=== PATIENT | male | born 1955 | race African-American/Black ===

== ENCOUNTER → 2016-08-15 | Day surgery (SDC) | payer OTHER ==
[~2016-08-15] VITALS: Ht 175.3 cm; Wt 69.3 kg
[~2016-08-15] MED LIST: ALLO100T PO; AMLO5TAB2 PO; BELLADONNA ALKALOIDS/OPIUM 60 MG SUPP RECTAL ONE; CHLORHEXIDINE GLUCONATE 2 % 1 PACK (2 CLOTHS) TOPICAL PRN; CYCL1TAB29 PO; DEXAMETHASONE SOD PHOS 4 MG/ML VIAL ONE; FAMOTIDINE 20 MG/2 ML VIAL ONE; INSULIN HUMAN REGULAR 1,000 UNITS/10 ML VIAL SQ PRN; LACTATED RINGER'S 1000 ML IV PRN; METO25TA3 PO; METOPROLOL TARTRATE 25 MG TAB PO PRN; MIDAZOLAM HCL 2 MG/2 ML VIAL ONE; ONDANSETRON HCL 4 MG/2 ML VIAL IV PUSH ONE; PHENYLEPH/NS 1000 MCG/10 ML SYR IV ONE; POVIDONE IODINE 5% (ANTISEPSIS KIT) 4 APPLICATIONS EACH NARE PRN; PROPOFOL 200 MG/20 ML AMP IV ONE; QUET1TAB7 PO; SODIUM CHLORID 0.9% 500 ML IV PRN; VESI5TAB PO; ceFAZolin 1,000 MG/NS 100 ML IV SCH
[2016-08-15 06:18] VITALS: BP 129/91; PULSE 108; RESP 18; TEMP 98.6; O2SAT 96
[2016-08-15 06:40] LABS: BASOPHIL % 0.8 % (0.0-2.0); HEMATOCRIT 38.4 % (39.0-51.0); HEMO FLAGS DIFF FINAL; LYMPH % 26.3 % (9.0-44.0); LYMPHOCYTE # 1.1 TH/MM3 (1.0-4.8); MEAN CELL VOLUME 90.6 FL (80.0-100.0); MEAN CORPUSCULAR HEMOGLOBIN 31.1 PG (27.0-34.0); MEAN CORPUSCULAR HGB CONC 34.3 % (32.0-36.0); MONO % 23.2 % (0.0-8.0); NEUT % 48.7 % (16.0-70.0); PLATELET COUNT 273 TH/MM3 (150-450); RED BLOOD COUNT 4.24 MIL/MM3 (4.50-5.90); RED CELL DISTRIBUTION WIDTH 13.1 % (11.6-17.2); WHITE BLOOD COUNT 4.1 TH/MM3 (4.0-11.0)
--- NOTE | 2016-08-15 09:10 | PD.OP ---
Operative Report Date of Surgery: Aug 15, 2016 Preoperative Diagnosis: History of prostate cancer s/p RRP with bladder neck contracture Postoperative Diagnosis: Same Procedure: Cystoscopy with dilatation of bladder neck contracture Anesthesia: Gen. 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 Pathology showed Carmine 9 disease pT3b. Patient has been having difficulty urinating and cystoscopy in office demonstrated a bladder neck contracture. He did undergo cystoscopy with urethral dilation in the office but scar tissue reformed. Decision made to bring the patient to the operating room to undergo cystoscopy with dilatation of bladder neck contracture and possible DVIU. Risk of incontinence was discussed preoperatively and he was willing to proceed. Patient is brought the operating room and identified by myself as Gabino Cooley. This placed the dorsal lithotomy position, prepped and draped in usual sterile fashion, received preprocedure antibiotics, and and general LMA anesthesia was administered. 19 Danish cystoscope was inserted up to the area of the bladder neck and a 0.35 sensor wire was passed into the bladder. Using Microvasive ureteral dilators, the bladder neck contracture was dilated up to a 16 Danish. The 19 Danish cystoscope was then able to be passed through the area dilating it further. Leaving the wire in place a 18 Danish [place] tip catheter was inserted over the wire without difficulty. The bladder was emptied and 20 cc were placed in the balloon. He tolerated the procedure well and was transferred to her room in stable condition. He'll follow-up in one week to undergo voiding trial. He may need to proceed with clean intermittent catheterization once a week to maintain patency of his bladder neck. Abhinav Saucedo DO Aug 15, 2016 09:10
--- NOTE | 2016-08-15 09:54 | EKG ---
Date Performed: 08/15/2016 Time Performed: 06:51:42 PTAGE: 61 years EKG: SINUS TACHYCARDIA MODERATE INTRAVENTRICULAR CONDUCTION DELAY NONSPECIFIC T-WAVE ABNORMALITY ABNORMAL ECG PREVIOUS TRACING : 02/28/2015 18.17 Compared to prior tracing no significant change DOCTOR: Billy Juan Interpretating Date/Time 08/15/2016 09:53:08
[2016-08-15 10:45] VITALS: BP 124/76; PULSE 92; RESP 18; TEMP 97.9; O2SAT 97
== END | disposition home or self-care (01) ==
LOC: HSDC 05:38
PROVIDERS: ATTEND Urology
DX: N32.0 Bladder-neck obstruction (principal); Z85.46 Personal history of malignant neoplasm of prostate; R94.31 Abnormal electrocardiogram [ECG] [EKG]
CPT/HCPCS: 00910; 52281; 85025; 93005; C1769; J0690; J1100; J2250; J2370; J2405; J3010; J7120

== ENCOUNTER → 2017-03-11 | Outpatient (CLI) | payer OTHER ==
[~2017-03-11] MED LIST changes: -BELLADONNA ALKALOIDS/OPIUM 60 MG SUPP RECTAL ONE; -CHLORHEXIDINE GLUCONATE 2 % 1 PACK (2 CLOTHS) TOPICAL PRN; -DEXAMETHASONE SOD PHOS 4 MG/ML VIAL ONE; -FAMOTIDINE 20 MG/2 ML VIAL ONE; -INSULIN HUMAN REGULAR 1,000 UNITS/10 ML VIAL SQ PRN; -LACTATED RINGER'S 1000 ML IV PRN; -METOPROLOL TARTRATE 25 MG TAB PO PRN; -MIDAZOLAM HCL 2 MG/2 ML VIAL ONE; -ONDANSETRON HCL 4 MG/2 ML VIAL IV PUSH ONE; -PHENYLEPH/NS 1000 MCG/10 ML SYR IV ONE; -POVIDONE IODINE 5% (ANTISEPSIS KIT) 4 APPLICATIONS EACH NARE PRN; -PROPOFOL 200 MG/20 ML AMP IV ONE; -SODIUM CHLORID 0.9% 500 ML IV PRN; -ceFAZolin 1,000 MG/NS 100 ML IV SCH
--- NOTE | 2017-03-11 12:38 | RADRPT ---
EXAM DATE/TIME: 03/11/2017 11:15 [facility] COMPARISON: No previous studies available for comparison. INDICATIONS : History of prostate cancer ORAL CONTRAST: Prescribed oral contrast ingested. RADIATION DOSE: 5.20 CTDIvol (mGy) MEDICAL HISTORY : Carcinoma, prostate. Hypertension. SURGICAL HISTORY : Prostatectomy. ENCOUNTER: Initial ACUITY: 1 day PAIN SCALE: 0/10 LOCATION: abdomen TECHNIQUE: Volumetric scanning of the abdomen and pelvis was performed. Using automated exposure control and ad justment of the mA and/or kV according to patient size, radiation dose was kept as low as reasonably achievable to obtain optimal diagnostic quality images. DICOM format image data is available electro nically for review and comparison. FINDINGS: LOWER LUNGS: The visualized lower lungs are clear. There is coronary artery calcification. LIVER: Mild diffuse low density without lesion. There is no dilation of the biliary tree. No calcified gal lstones. SPLEEN: Normal size without lesion. PANCREAS: Within normal limits. KIDNEYS: Normal in size and shape. There is no mass, stone, or hydronephrosis. ADRENAL GLANDS: Within normal limits. VASCULAR: There is no aortic aneurysm. There is severe atherosclerotic disease. BOWEL/MESENTERY: The stomach, small bowel, and colon demonstrate no acute abnormality. There is no free intraperitone al air or fluid. Appendix is normal. There is groundglass attenuation within the small bowel mesenter y. ABDOMINAL WALL: Within normal limits. RETROPERITONEUM: There is no lymphadenopathy. There are multiple clips in the pelvis. BLADDER: No wall thickening or mass. REPRODUCTIVE: Surgically absent. INGUINAL: There is no lymphadenopathy or hernia. MUSCULOSKELETAL: There are degenerative changes of the lumbar spine. No lytic or blastic lesion is present. CONCLUSION: 1. No acute finding is identified within the abdomen or pelvis. Patient is post prostatectomy. There are no imaging findings to indicate local recurrence or metastatic disease on this noncontrast exam. 2. Nonacute findings include coronary artery calcification, severe atherosclerotic disease, and hepat ic steatosis. Bruce Miles MD on March 11, 2017 at 12:32 Board Certified Radiologist. This report was verified electronically.
--- NOTE | 2017-03-11 15:18 | RADRPT ---
EXAM DATE/TIME: 03/11/2017 13:14 [facility] COMPARISON: No previous studies available for comparison. PRIOR BONE SCANS: No correlative bone scan available for comparison. INDICATIONS : Prostate cancer. DOSE: 31 mCi Tc99m MDP IV MEDICAL HISTORY : None SURGICAL HISTORY : None. ENCOUNTER: Initial ACUITY: 4 - 6 months PAIN SCALE: 0/10 LOCATION: Prostate. TECHNIQUE: Three hours post intravenous administration of radiotracer, whole body bone scan imaging was performe d. FINDINGS: There is increased activity in the anterior aspect of the fourth rib and posterior right ninth charac teristic of trauma. No evidence of metastatic disease. The kidneys and bladder appear normal. CONCLUSION: 1. No evidence of metastatic disease. Eusebio Dukes MD on March 11, 2017 at 14:56 Board Certified Radiologist. This report was verified electronically.
== END ==
LOC: HRAD 08:24
PROVIDERS: ATTEND Urology
DX: N32.0 Bladder-neck obstruction (principal); Z85.46 Personal history of malignant neoplasm of prostate
CPT/HCPCS: 74176; 78306; A9503